=== PATIENT | female | born 1980 | race Two or more races ===

== ENCOUNTER 2023-05-16 08:47 | Outpatient (CLI) | payer OTHER | END 2023-05-16 08:52 | disposition home or self-care (01) | LOC: SONOGRAMA 08:47 | PROVIDERS: ATTEND Pathology Anatomic Pathology & Clinical Pathology | DX: E04.9 Nontoxic goiter, unspecified (principal); D34 Benign neoplasm of thyroid gland ==

== ENCOUNTER 2025-03-10 10:52 | Outpatient (CLI) | payer OTHER | END 2025-03-10 11:03 | disposition home or self-care (01) | LOC: RAD 10:52 | PROVIDERS: ATTEND Orthopaedic Surgery | DX: M25.572 Pain in left ankle and joints of left foot (principal) ==

== ENCOUNTER 2025-04-19 09:02 | Outpatient (CLI) | payer OTHER | END 2025-04-19 09:18 | disposition home or self-care (01) | LOC: SONOGRAMA 09:02 | PROVIDERS: ATTEND Orthopaedic Surgery | DX: M76.72 Peroneal tendinitis, left leg (principal); S93.492D Sprain of other ligament of left ankle, subsequent encounter; M25.572 Pain in left ankle and joints of left foot ==